=== PATIENT | male | born 1980 | race American Indian/Alaskan Native ===

== ENCOUNTER 2019-05-31 17:00 | Emergency (ER) | payer SELFPAY ==
--- NOTE | 2019-05-31 17:28 | Event Note ---
ED Screening Note ED Screening Note: PT HAD A PHYSICAL FOR JOB- BP ELEVATED AND THEY SENT HIM HERE NO CP NO SOB MOM DEC ESRD/HD DAD DEC ? CAUSE PMH NONE PSH NONE RX NONE NO CIG/ETOH/DRUGS NON OBESE This initial assessment/diagnostic orders/clinical plan/treatment(s) is/are subject to change based on patients health status, clinical progression and re- assessment by fellow clinical providers in the ED. Further treatment and workup at subsequent clinical providers discretion. Patient/guardian urged not to elope from the ED as their condition may be serious if not clinically assessed and managed. Initial orders include:
[2019-05-31] MEDS ORDERED: CATAPRES PO ONE (17:36)
--- NOTE | 2019-05-31 18:16 | Emergency Department Report ---
ED General Adult HPI - General Chief complaint: High BP Stated complaint: HBP Time Seen by Provider: 05/31/19 17:35 Source: patient Mode of arrival: Ambulatory Limitations: No Limitations - History of Present Illness Initial comments: 38-year-old female with no known past medical history presents to the hospital with complaints of elevated low-pressure during a job physical. 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 His BP was elevated he was sent to the ER for evaluation. Patient denies a known history of hypertension but has not seen a physician in quite some time. He denies headache, blurred vision, chest pain, shortness of breath, decreased urine output, focal weakness, or focal numbness. Initial BP upon arrival was 237/133. - Related Data Previous Rx's Medication Instructions Recorded Last Taken Type Aspirin 325 mg PO QDAY #30 tablet 05/31/19 Unknown Rx amLODIPine [Norvasc] 5 mg PO DAILY #30 tab 05/31/19 Unknown Rx cloNIDine [Catapres] 0.1 mg PO BID #60 tablet 05/31/19 Unknown Rx Allergies Allergy/AdvReac Type Severity Reaction Status Date / Time No Known Allergies Allergy Unverified 05/31/19 17:15 ED Review of Systems ROS: Stated complaint: HBP Other details as noted in HPI Comment: All other systems reviewed and negative ED Past Medical Hx - Past Medical History Previous Medical History?: No - Surgical History Past Surgical History?: No - Social History Smoking Status: Never Smoker - Medications Home Medications: Home Medications Medication Instructions Recorded Confirmed Last Taken Type Aspirin 325 mg PO QDAY #30 tablet 05/31/19 Unknown Rx amLODIPine [Norvasc] 5 mg PO DAILY #30 tab 05/31/19 Unknown Rx cloNIDine [Catapres] 0.1 mg PO BID #60 tablet 05/31/19 Unknown Rx ED Physical Exam - General Limitations: No Limitations - Other Other exam information: Gen.: No acute distress Head: Atraumatic Eyes: Normal appearance, pupils equal and reactive to light, extraocular movements intact ENT: Moist mucous membranes Neck: Normal appearance, no posterior midline tenderness, no meningismus Chest: Clear to auscultation bilaterally Cardiovascular: Regular rate and rhythm Abdomen: Normal appearance, soft, nontender, no rebound or guarding, normal bowel sounds Back: Normal appearance, nontender Extremity: Full range of motion, normal appearance, no calf tenderness or leg edema Neuro: Alert oriented 3, clear speech, no focal motor or sensory deficit Psychiatric: Appropriate Skin: No rash ED Course Vital Signs 05/31/19 05/31/19 05/31/19 17:18 17:26 17:31 Temperature 98.4 F Pulse Rate 112 H Respiratory 16 12 Rate Blood Pressure Blood Pressure 237/133 [Right] O2 Sat by Pulse 100 100 99 Oximetry 05/31/19 05/31/19 05/31/19 18:00 18:52 19:07 Temperature Pulse Rate 99 H 90 87 Respiratory 21 17 16 Rate Blood Pressure 216/122 Blood Pressure 202/121 162/93 [Right] O2 Sat by Pulse 99 97 98 Oximetry 05/31/19 05/31/19 05/31/19 19:59 20:00 21:17 Temperature Pulse Rate 77 80 77 Respiratory 16 16 17 Rate Blood Pressure Blood Pressure 183/108 177/106 166/97 [Right] O2 Sat by Pulse 97 98 97 Oximetry 05/31/19 05/31/19 22:18 22:49 Temperature Pulse Rate 72 72 Respiratory 16 Rate Blood Pressure 178/99 Blood Pressure 178/99 [Right] O2 Sat by Pulse 99 Oximetry - Reevaluation(s) Reevaluation #1: 05/31/19 18:16 Patient is asymptomatic. Received clonidine 0.2 mg while results pending. ED Medical Decision Making - Lab Data Result diagrams: 05/31/19 17:56 05/31/19 17:56 Lab Results 05/31/19 05/31/19 05/31/19 Range/Units 17:56 17:56 17:56 WBC 6.8 (4.5-11.0) K/mm3 RBC 4.96 (3.65-5.03) M/mm3 Hgb 13.6 (11.8-15.2) gm/dl Hct 39.8 (35.5-45.6) % MCV 80 L (84-94) fl MCH 28 (28-32) pg MCHC 34 (32-34) % RDW 14.0 (13.2-15.2) % Plt Count 187 (140-440) K/mm3 Lymph % (Auto) 41.0 H (13.4-35.0) % [place] % (Auto) 7.3 (0.0-7.3) % Eos % (Auto) 2.0 (0.0-4.3) % Baso % (Auto) 0.7 (0.0-1.8) % Lymph # 2.8 (1.2-5.4) K/mm3 [place] # 0.5 (0.0-0.8) K/mm3 Eos # 0.1 (0.0-0.4) K/mm3 Baso # 0.0 (0.0-0.1) K/mm3 Seg Neutrophils % 49.0 (40.0-70.0) % Seg Neutrophils # 3.3 (1.8-7.7) K/mm3 PT 13.0 (12.2-14.9) Sec. INR 1.01 (0.87-1.13) Sodium 138 (137-145) mmol/L Potassium 3.6 (3.6-5.0) mmol/L Chloride 101.8 (98-107) mmol/L Carbon Dioxide 25 (22-30) mmol/L Anion Gap 15 mmol/L BUN 24 H (9-20) mg/dL Creatinine 1.8 H (0.8-1.5) mg/dL Estimated GFR 52 ml/min BUN/Creatinine Ratio 13 % Glucose 167 H (75-100) mg/dL Calcium 8.7 (8.4-10.2) mg/dL Total Bilirubin 0.30 (0.1-1.2) mg/dL AST 31 (5-40) units/L ALT 20 (7-56) units/L Alkaline Phosphatase 107 (35-129) units/L Troponin T (0.00-0.029) ng/mL Total Protein 7.3 (6.3-8.2) g/dL Albumin 3.4 L (3.9-5) g/dL Albumin/Globulin Ratio 0.9 % Urine Color (Yellow) Urine Turbidity (Clear) Urine pH (5.0-7.0) Ur Specific [place] (1.003-1.030) Urine Protein (Negative) mg/dL Urine Glucose (UA) (Negative) mg/dL Urine Ketones (Negative) mg/dL Urine Blood (Negative) Urine Nitrite (Negative) Urine Bilirubin (Negative) Urine Urobilinogen (<2.0) mg/dL Ur Leukocyte Esterase (Negative) Urine WBC (Auto) (0.0-6.0) /HPF Urine RBC (Auto) (0.0-6.0) /HPF Hyaline Casts /LPF Urine Opiates Screen Urine Methadone Screen Ur Barbiturates Screen Ur Phencyclidine Scrn Ur Amphetamines Screen U Benzodiazepines Scrn Urine Cocaine Screen U Marijuana (THC) Screen Drugs of Abuse Note 05/31/19 05/31/19 05/31/19 Range/Units 17:56 18:11 18:11 WBC (4.5-11.0) K/mm3 RBC (3.65-5.03) M/mm3 Hgb (11.8-15.2) gm/dl Hct (35.5-45.6) % MCV (84-94) fl MCH (28-32) pg MCHC (32-34) % RDW (13.2-15.2) % Plt Count (140-440) K/mm3 Lymph % (Auto) (13.4-35.0) % [place] % (Auto) (0.0-7.3) % Eos % (Auto) (0.0-4.3) % Baso % (Auto) (0.0-1.8) % Lymph # (1.2-5.4) K/mm3 [place] # (0.0-0.8) K/mm3 Eos # (0.0-0.4) K/mm3 Baso # (0.0-0.1) K/mm3 Seg Neutrophils % (40.0-70.0) % Seg Neutrophils # (1.8-7.7) K/mm3 PT (12.2-14.9) Sec. INR (0.87-1.13) Sodium (137-145) mmol/L Potassium (3.6-5.0) mmol/L Chloride (98-107) mmol/L Carbon Dioxide (22-30) mmol/L Anion Gap mmol/L BUN (9-20) mg/dL Creatinine (0.8-1.5) mg/dL Estimated GFR ml/min BUN/Creatinine Ratio % Glucose (75-100) mg/dL Calcium (8.4-10.2) mg/dL Total Bilirubin (0.1-1.2) mg/dL AST (5-40) units/L ALT (7-56) units/L Alkaline Phosphatase (35-129) units/L Troponin T < 0.010 (0.00-0.029) ng/mL Total Protein (6.3-8.2) g/dL Albumin (3.9-5) g/dL Albumin/Globulin Ratio % Urine Color Straw (Yellow) Urine Turbidity Clear (Clear) Urine pH 7.0 (5.0-7.0) Ur Specific [place] 1.008 (1.003-1.030) Urine Protein 100 mg/dl (Negative) mg/dL Urine Glucose (UA) 50 (Negative) mg/dL Urine Ketones Neg (Negative) mg/dL Urine Blood Sm (Negative) Urine Nitrite Neg (Negative) Urine Bilirubin Neg (Negative) Urine Urobilinogen < 2.0 (<2.0) mg/dL Ur Leukocyte Esterase Neg (Negative) Urine WBC (Auto) < 1.0 (0.0-6.0) /HPF Urine RBC (Auto) 4.0 (0.0-6.0) /HPF Hyaline Casts 1 /LPF Urine Opiates Screen Presumptive negative Urine Methadone Screen Presumptive negative Ur Barbiturates Screen Presumptive negative Ur Phencyclidine Scrn Presumptive negative Ur Amphetamines Screen Presumptive negative U Benzodiazepines Scrn Presumptive negative Urine Cocaine Screen Presumptive negative U Marijuana (THC) Screen Presumptive negative Drugs of Abuse Note Disclamer - EKG Data -: EKG Interpreted by [place] EKG shows normal: sinus rhythm, ST-T waves (lvh, inf lat t wave inv) - EKG Data When compared to previous EKG there are: previous EKG unavailable - Medical Decision Making pt has asymptomatic hypertension suspected to be chronic given the lack of symptoms. Patient has some abnormal EKG findings but does not have any chest pain and has a negative troponin. I suspect EKG findings are secondary to hypertension. Patient has mild renal insufficiency without hyperkalemia or acidosis. BP improved with clonidine 0.2 mg Case discussed with nephrology and recommended clonidine 0.1 mg twice a day and Norvasc 5 mg daily will be prescribed and follow-up advice. Outpatient cardiac workup also advised since patient is asymptomatic. Pt has negative troponin. pt will need close outpt f/u with renal, cards, and pmd. [facility] cardiology f/u for low heart score given to gaming investigator to arrange for close f/u - Differential Diagnosis hypertensive emergency/urgency Critical Care Time: No Critical care attestation.: If time is entered above; I have spent that time in minutes in the direct care of this critically ill patient, excluding procedure time. ED Disposition Clinical Impression: Hypertension, Mild renal insufficiency, Asymptomatic hypertension Disposition: DC-01 TO HOME OR SELFCARE Is pt being admited?: No Does the pt Need Aspirin: No Condition: Stable Instructions: Hypertension (ED), Impaired Kidney Function (ED) Additional Instructions: Take the medication as prescribed. Follow-up with your doctor or with the doctor/clinic provided. Return if symptoms worsen as indicated by your discharge instructions. Follow-up with cardiology for further evaluation due to EKG findings which are likely the result of long-standing untreated high blood pressure. Follow-up with the kidney doctor for further monitoring of your kidney function and adjustment of your blood pressure medication Follow-up with the primary care doctor coordinate your care. Prescriptions: Aspirin 325 mg PO QDAY #30 tablet cloNIDine [Catapres] 0.1 mg PO BID #60 tablet amLODIPine [Norvasc] 5 mg PO DAILY #30 tab Referrals: TAYLER LEE MD [Staff Physician] - 3-5 Days (Dater Assembler) [facility], [Provider Group] - 2-3 Days (Fur Ironer) PANFILO NESBITT MD [Staff Physician] - 2-3 Days (Primary care doctor) [facility] [Provider Group] - 2-3 Days (Primary care clinic) Time of Disposition: 22:56
[2019-05-31 18:21] LABS: Basophils % (Auto) 0.7 % (0.0-1.8); Eosinophils # (Auto) 0.1 K/mm3 (0.0-0.4); Hematocrit 39.8 % (35.5-45.6); Hemoglobin 13.6 gm/dl (11.8-15.2); Lymphocytes # (Auto) 2.8 K/mm3 (1.2-5.4); Mean Corpuscular HGB Conc 34 % (32-34); Mean Corpuscular Volume 80 fl (84-94); Monocytes # (Auto) 0.5 K/mm3 (0.0-0.8); Monocytes % (Auto) 7.3 % (0.0-7.3); Platelet Count 187 K/mm3 (140-440); Red Blood Count 4.96 M/mm3 (3.65-5.03)
[2019-05-31 18:29] LABS: INR 1.01 (0.87-1.13)
[2019-05-31 18:48] LABS: Albumin 3.4 g/dL (3.9-5); Calcium 8.7 mg/dL (8.4-10.2)
[2019-05-31 19:05] LABS: Bilirubin,Urine NEG (Negative); Blood,Urine SM (Negative); Color,Urine Straw (Yellow); Hyaline Casts,Urine 1 /LPF; Urobilinogen,Urine < 2.0 mg/dL (<2.0); WBC,Urine < 1.0 /HPF (0.0-6.0)
[2019-05-31 19:09] LABS: Amphetamine Screen,Urine PRESUMPTIVE NEGATIVE; Benzodiazepines Screen,Urine PRESUMPTIVE NEGATIVE; Cannabinoid Screen,Urine PRESUMPTIVE NEGATIVE; Cocaine Screen,Urine PRESUMPTIVE NEGATIVE; Methadone Screen,Urine PRESUMPTIVE NEGATIVE; Opiate Screen,Urine PRESUMPTIVE NEGATIVE
[2019-05-31] MEDS ORDERED: NORVASC PO ONE (21:39)
[2019-05-31 23:32] VITALS: BP 177/102
== END 2019-05-31 23:33 | disposition home or self-care (01) ==
LOC: ED 17:00
DX: N28.9 Disorder of kidney and ureter, unspecified (principal); I10 Essential (primary) hypertension; Z79.899 Other long term (current) drug therapy
CPT/HCPCS: 36415; 80053; 80307; 81001; 84484; 85025; 85610; 93005; 93010

== ENCOUNTER 2019-06-09 11:58 | Emergency (ER) | payer SELFPAY ==
--- NOTE | 2019-06-09 12:13 | Emergency Department Report ---
Blank Doc - Documentation Documentation: 38 y/o male with asymptomatic HTN presnets with continued HTN despite taking medications. his initial assessment/diagnostic orders/clinical plan/treatment(s) is/are subject to change based on patient's health status, clinical progression and re- assessment by fellow clinical providers in the ED. Further treatment and workup at subsequent clinical providers discretion. Patient/guardians urged not to elope from the ED as their condition may be serious if not clinically assessed and managed. Initial orders include: NO test needed
--- NOTE | 2019-06-09 12:40 | Emergency Department Report ---
ED General Adult HPI - General Chief complaint: High BP Stated complaint: MEDICATION NOT WORKING Time Seen by Provider: 06/09/19 12:04 Source: patient Mode of arrival: Ambulatory Limitations: No Limitations - History of Present Illness Initial comments: She is a 38-year-old male that presents emergency room for management of his blood pressure. Patient is asymptomatic. Patient states she is taking Norvasc 5 mg once a day and clonidine once a day. Patient's blood pressure is currently 203/100. Patient denies chest pain. Patient shortness breath. Patient denies headache. Patient denies blurry vision. Patient denies syncope. Patient denies trauma. Patient's clonidine is written for twice a day but patient did not realize it was twice a day. Patient states she took an extra clonidine just prior to arrival. -: Sudden - Related Data Previous Rx's Medication Instructions Recorded Last Taken Type Aspirin 325 mg PO QDAY #30 tablet 05/31/19 Unknown Rx amLODIPine 10 mg PO DAILY #30 tab 06/09/19 Unknown Rx cloNIDine [Catapres] 0.1 mg PO TID #45 tablet 06/09/19 Unknown Rx Allergies Allergy/AdvReac Type Severity Reaction Status Date / Time No Known Allergies Allergy Verified 06/09/19 12:00 ED Review of Systems ROS: Stated complaint: MEDICATION NOT WORKING Other details as noted in HPI Constitutional: denies: chills, fever Eyes: denies: eye pain, eye discharge, vision change ENT: denies: ear pain, throat pain Respiratory: denies: cough, shortness of breath, wheezing Cardiovascular: denies: chest pain, palpitations Endocrine: no symptoms reported Gastrointestinal: denies: abdominal pain, nausea, diarrhea Genitourinary: denies: urgency, dysuria Musculoskeletal: denies: back pain, joint swelling, arthralgia Skin: denies: rash, lesions Neurological: denies: headache, weakness, paresthesias Psychiatric: denies: anxiety, depression Hematological/Lymphatic: denies: easy bleeding, easy bruising ED Past Medical Hx - Past Medical History Previous Medical History?: Yes Hx Hypertension: Yes - Surgical History Past Surgical History?: No - Social History Smoking Status: Never Smoker Substance Use Type: None - Medications Home Medications: Home Medications Medication Instructions Recorded Confirmed Last Taken Type Aspirin 325 mg PO QDAY #30 tablet 05/31/19 Unknown Rx amLODIPine 10 mg PO DAILY #30 tab 06/09/19 Unknown Rx cloNIDine [Catapres] 0.1 mg PO TID #45 tablet 06/09/19 Unknown Rx ED Physical Exam - General Limitations: No Limitations General appearance: alert, in no apparent distress - Head Head exam: Present: atraumatic, normocephalic - Eye Eye exam: Present: normal appearance - ENT ENT exam: Present: mucous membranes moist - Neck Neck exam: Present: normal inspection - Respiratory Respiratory exam: Present: normal lung sounds bilaterally. Absent: respiratory distress - Cardiovascular Cardiovascular Exam: Present: regular rate, normal rhythm. Absent: systolic murmur, diastolic murmur, rubs, gallop - GI/Abdominal GI/Abdominal exam: Present: soft, normal bowel sounds - Rectal Rectal exam: Present: deferred - Extremities Exam Extremities exam: Present: normal inspection - Back Exam Back exam: Present: normal inspection - Neurological Exam Neurological exam: Present: alert, oriented X3 - Psychiatric Psychiatric exam: Present: normal affect, normal mood - Skin Skin exam: Present: warm, dry, intact, normal color. Absent: rash ED Course Vital Signs 06/09/19 06/09/19 12:06 12:45 Temperature 97.9 F Pulse Rate 89 84 Respiratory 20 20 Rate Blood Pressure 203/100 Blood Pressure 192/91 [Left] O2 Sat by Pulse 100 100 Oximetry - Reevaluation(s) Reevaluation #1: Abrasion does not currently does not have a marginal medical condition except for his elevated blood pressure. Patient's blood pressure rechecked and his prescription will be increased. I reviewed the patient's labs from previous visit. 06/09/19 12:37 His current blood pressure is 194/100. Patient stable for discharge. Patient given discharge instructions. Patient voiced understanding of discharge instructions. Patient agrees with plan of care. 06/09/19 12:42 ED Medical Decision Making - Medical Decision Making pt is a 38-year-old male that presents emergency room with complaints of elevated blood pressure. Patient has been taking his clonidine once a day versus twice a day. I reviewed patient's last labs from his previous visit. Patient previously on Norvasc 5 mg and 0.1 mg daily and clonidine. Patient's clonidine increased to 3 times a day and Norvasc increased 10 mg daily. Patient came male with a severely elevated blood pressure and blood pressure decreased with his 0.1 mg clonidine a took just prior to arrival to 190/90 and patient stable for discharge. Patient does not require any further lab for emergent evaluation. Patient's meds adjusted and patient given new prescriptions. - Differential Diagnosis elevated blood pressure. Hypertensive urgency. Critical care attestation.: If time is entered above; I have spent that time in minutes in the direct care of this critically ill patient, excluding procedure time. ED Disposition Clinical Impression: Mild renal insufficiency, Asymptomatic hypertension, Hypertensive urgency Hypertension Qualifiers: Hypertension type: essential hypertension Qualified Code(s): I10 - Essential (primary) hypertension Disposition: TO HOME OR SELFCARE Is pt being admited?: No Does the pt Need Aspirin: No Condition: Stable Instructions: Heart Healthy Diet (ED), How to Take a Blood Pressure (ED), DASH Eating Plan (ED), Low Sodium Diet (ED), Hypertension (ED) Additional Instructions: Patient to follow-up with primary care in 2-3 days. Patient to take meds as directed. Patient to follow prescriptions. Patient to increase water. Patient to eat heart healthy and a low salt diet. Patient to monitor blood pressure at home. Patient take pressure log to primary care visits. To return to ER if condition worsens. Prescriptions: amLODIPine 10 mg PO DAILY #30 tab cloNIDine [Catapres] 0.1 mg PO TID #45 tablet Time of Disposition: 12:39
[2019-06-09 12:51] VITALS: BP 192/91
== END 2019-06-09 12:50 | disposition home or self-care (01) ==
LOC: ED 11:58
DX: I16.0 Hypertensive urgency (principal); I10 Essential (primary) hypertension; N28.9 Disorder of kidney and ureter, unspecified; Z79.82 Long term (current) use of aspirin; Z79.899 Other long term (current) drug therapy
CPT/HCPCS: 99282

== ENCOUNTER 2019-07-06 10:51 | Emergency (ER) | payer SELFPAY ==
[2019-07-06 11:01] VITALS: BP 186/103
--- NOTE | 2019-07-06 12:18 | Emergency Department Report ---
ED General Adult HPI - General Chief complaint: Medical Clearance Stated complaint: MEDS REFILL Time Seen by Provider: 07/06/19 12:06 Source: patient Mode of arrival: Ambulatory Limitations: No Limitations - History of Present Illness Initial comments: 38-year-old -[place] male since emergency department seeking a medication refill for hypertension. He went to his doctor's office earlier was unable to verify his insurance while he was there. He states that the process of taking too long so they referred him to the emergency department so that he may get it refilled. Patient is unsure if his insurance is going to or not. He reports no chest pain, palpitations no nausea, vomiting no fever, chills, sweats. Severity scale (0 -10): 0 Improves with: none Worsens with: none Treatments Prior to Arrival: none - Related Data Previous Rx's Medication Instructions Recorded Last Taken Type Aspirin 325 mg PO QDAY #30 tablet 05/31/19 Unknown Rx amLODIPine 10 mg PO DAILY #30 tab 06/09/19 Unknown Rx cloNIDine [Catapres] 0.1 mg PO TID #45 tablet 06/09/19 Unknown Rx amLODIPine 10 mg PO DAILY #10 tab 07/06/19 Unknown Rx cloNIDine [Catapres] 0.1 mg PO TID #30 tablet 07/06/19 Unknown Rx Allergies Allergy/AdvReac Type Severity Reaction Status Date / Time No Known Allergies Allergy Verified 06/09/19 12:00 ED Review of Systems ROS: Stated complaint: MEDS REFILL Other details as noted in HPI Comment: All other systems reviewed and negative ED Past Medical Hx - Past Medical History Previous Medical History?: Yes Hx Hypertension: Yes - Surgical History Past Surgical History?: No - Social History Smoking Status: Never Smoker Substance Use Type: None - Medications Home Medications: Home Medications Medication Instructions Recorded Confirmed Last Taken Type Aspirin 325 mg PO QDAY #30 tablet 05/31/19 Unknown Rx amLODIPine 10 mg PO DAILY #30 tab 06/09/19 Unknown Rx cloNIDine [Catapres] 0.1 mg PO TID #45 tablet 06/09/19 Unknown Rx amLODIPine 10 mg PO DAILY #10 tab 07/06/19 Unknown Rx cloNIDine [Catapres] 0.1 mg PO TID #30 tablet 07/06/19 Unknown Rx ED Physical Exam - General Limitations: No Limitations General appearance: alert, in no apparent distress - Head Head exam: Present: atraumatic, normocephalic - Eye Eye exam: Present: normal appearance, PERRL, EOMI Pupils: Present: normal accommodation - ENT ENT exam: Present: normal exam, normal orophraynx, mucous membranes moist, TM's normal bilaterally - Neck Neck exam: Present: normal inspection - Respiratory Respiratory exam: Present: normal lung sounds bilaterally. Absent: respiratory distress - Cardiovascular Cardiovascular Exam: Present: regular rate, normal rhythm. Absent: systolic murmur, diastolic murmur, rubs, gallop - GI/Abdominal GI/Abdominal exam: Present: soft, normal bowel sounds - Rectal Rectal exam: Present: deferred - Extremities Exam Extremities exam: Present: normal inspection - Back Exam Back exam: Present: normal inspection. Absent: CVA tenderness (R), CVA tenderness (L) - Neurological Exam Neurological exam: Present: alert, oriented X3, CN II-XII intact, normal gait, reflexes normal, other (normal finger to nose. Normal [id number]. Romberg test is negative. A coordinated and smooth. No nystagmus. No signs of ataxia). Absent: motor sensory deficit - Psychiatric Psychiatric exam: Present: normal affect, normal mood. Absent: anxious, manic, suicidal ideation - Skin Skin exam: Present: warm, dry, intact, normal color. Absent: rash, cyanosis, erythema, petechiae, abrasion ED Course Vital Signs 07/06/19 11:00 Temperature 98.3 F Pulse Rate 90 Respiratory 18 Rate Blood Pressure 186/103 O2 Sat by Pulse 100 Oximetry ED Medical Decision Making - Medical Decision Making 38-year-old [place] male with asymptomatic hypertension seeking a medication refill. At this present time treatment not wanted per the ACEP guidelines. The patient is neurologically intact no chest pain no shortness of breath no palpitations no headache no blurred vision no nausea, no vomiting. Head is present time there is no medical emergency or urgency hypertension is asymptomatic we will refer patient to registration for screening satisfaction Critical care attestation.: If time is entered above; I have spent that time in minutes in the direct care of this critically ill patient, excluding procedure time. ED Disposition Clinical Impression: Hypertension Disposition: MED SCREENING EXAM-LEFT Is pt being admited?: No Does the pt Need Aspirin: No Condition: Stable Instructions: Hypertension (ED) Prescriptions: amLODIPine 10 mg PO DAILY #10 tab cloNIDine [Catapres] 0.1 mg PO TID #30 tablet Referrals: [facility] [Provider Group] - 3-5 Days
== END 2019-07-06 12:52 | disposition left against medical advice (07) ==
LOC: ED 10:51
DX: I10 Essential (primary) hypertension (principal); Z76.0 Encounter for issue of repeat prescription
CPT/HCPCS: 99281

== ENCOUNTER 2019-07-10 08:19 | Emergency (ER) | payer SELFPAY ==
--- NOTE | 2019-07-10 09:23 | Emergency Department Report ---
ED General Adult HPI - General Chief complaint: High BP Stated complaint: MEDICATION REFILL Time Seen by Provider: 07/10/19 08:56 Source: patient Mode of arrival: Ambulatory Limitations: No Limitations - History of Present Illness Initial comments: This is a 38-year-old male nontoxic, well nourished in appearance, no acute signs of distress presents to the ED for medication refill of his blood pressure. Patient stated he was unable to follow-up with his primary care doctor. Patient stated that he takes Catapres and amlodipine daily but has not been taking it for the past 3 days. Patient denies any symptoms. Patient denies any chest pain, shortness of breath, fever, chills, nausea, vomiting, headache, stiff neck, numbness, tingling, back pain. Patient denies any allergies. MD Complaint: hypertensive urgency -: week(s) Severity scale (0 -10): 0 Improves with: none Worsens with: none Associated Symptoms: denies other symptoms. denies: confusion, chest pain, cough, diaphoresis, fever/chills, headaches, loss of appetite, malaise, nausea/vomiting, rash, seizure, shortness of breath, syncope, weakness Treatments Prior to Arrival: none - Related Data Previous Rx's Medication Instructions Recorded Last Taken Type Aspirin 325 mg PO QDAY #30 tablet 05/31/19 Unknown Rx amLODIPine 10 mg PO DAILY #30 tab 06/09/19 Unknown Rx cloNIDine [Catapres] 0.1 mg PO TID #45 tablet 06/09/19 Unknown Rx amLODIPine 10 mg PO DAILY #10 tab 07/06/19 Unknown Rx cloNIDine [Catapres] 0.1 mg PO TID #30 tablet 07/06/19 Unknown Rx amLODIPine 10 mg PO DAILY #30 tab 07/10/19 Unknown Rx cloNIDine [Catapres] 0.1 mg PO TID #90 tablet 07/10/19 Unknown Rx Allergies Allergy/AdvReac Type Severity Reaction Status Date / Time No Known Allergies Allergy Verified 06/09/19 12:00 ED Review of Systems ROS: Stated complaint: MEDICATION REFILL Other details as noted in HPI Constitutional: denies: chills, fever Eyes: denies: eye pain, eye discharge, vision change ENT: denies: ear pain, throat pain Respiratory: denies: cough, shortness of breath, wheezing Cardiovascular: denies: chest pain, palpitations Endocrine: no symptoms reported Gastrointestinal: denies: abdominal pain, nausea, diarrhea Genitourinary: denies: urgency, dysuria Musculoskeletal: denies: back pain, joint swelling, arthralgia Skin: denies: rash, lesions Neurological: denies: headache, weakness, paresthesias Psychiatric: denies: anxiety, depression Hematological/Lymphatic: denies: easy bleeding, easy bruising ED Past Medical Hx - Past Medical History Previous Medical History?: Yes Hx Hypertension: Yes - Surgical History Past Surgical History?: No - Social History Smoking Status: Never Smoker Substance Use Type: Prescribed - Medications Home Medications: Home Medications Medication Instructions Recorded Confirmed Last Taken Type Aspirin 325 mg PO QDAY #30 tablet 05/31/19 Unknown Rx amLODIPine 10 mg PO DAILY #30 tab 06/09/19 Unknown Rx cloNIDine [Catapres] 0.1 mg PO TID #45 tablet 06/09/19 Unknown Rx amLODIPine 10 mg PO DAILY #10 tab 07/06/19 07/10/19 Unknown Rx cloNIDine [Catapres] 0.1 mg PO TID #30 tablet 07/06/19 07/10/19 Unknown Rx amLODIPine 10 mg PO DAILY #30 tab 07/10/19 Unknown Rx cloNIDine [Catapres] 0.1 mg PO TID #90 tablet 07/10/19 Unknown Rx ED Physical Exam - General Limitations: No Limitations General appearance: alert, in no apparent distress - Head Head exam: Present: atraumatic, normocephalic - Eye Eye exam: Present: normal appearance, PERRL, EOMI - Neck Neck exam: Present: normal inspection, full ROM. Absent: tenderness, meningismus, lymphadenopathy - Respiratory Respiratory exam: Present: normal lung sounds bilaterally. Absent: respiratory distress, wheezes, rales, rhonchi, chest wall tenderness, accessory muscle use, decreased breath sounds, prolonged expiratory - Cardiovascular Cardiovascular Exam: Present: regular rate, normal rhythm - Extremities Exam Extremities exam: Present: normal inspection, full ROM - Back Exam Back exam: Present: normal inspection, full ROM. Absent: tenderness, CVA tenderness (R), CVA tenderness (L), muscle spasm, paraspinal tenderness, vertebral tenderness, rash noted - Neurological Exam Neurological exam: Present: alert, oriented X3, normal gait - Psychiatric Psychiatric exam: Present: normal affect, normal mood ED Course Vital Signs 07/10/19 07/10/19 07/10/19 08:22 09:29 09:30 Temperature 98.2 F Pulse Rate 94 H Respiratory 18 Rate Blood Pressure 244/134 Blood Pressure [Right] O2 Sat by Pulse 100 100 100 Oximetry 07/10/19 07/10/19 07/10/19 09:31 09:32 09:44 Temperature Pulse Rate 111 H 107 H Respiratory 15 15 Rate Blood Pressure 226/119 Blood Pressure 226/119 [Right] O2 Sat by Pulse 99 99 Oximetry 07/10/19 07/10/19 07/10/19 09:45 10:00 10:15 Temperature Pulse Rate 74 68 68 Respiratory 13 9 L 11 L Rate Blood Pressure 207/117 204/113 207/117 Blood Pressure [Right] O2 Sat by Pulse 99 99 98 Oximetry 07/10/19 07/10/19 07/10/19 10:30 10:45 11:01 Temperature Pulse Rate 73 65 61 Respiratory 15 16 15 Rate Blood Pressure 210/108 204/113 165/97 Blood Pressure [Right] O2 Sat by Pulse 98 99 97 Oximetry - Reevaluation(s) Reevaluation #1: 07/10/19 09:21 Patient is speaking in full sentences with no signs of distress noted. - Consultations Consultation #1: 07/10/19 09:21 Patient has been consulted with Clarisa Oscar about patient history, physical exam, and for diagnostic testing to be performed. ED Medical Decision Making - Lab Data Result diagrams: 07/10/19 09:22 07/10/19 09:22 - Medical Decision Making This is a 38-year-old male that presents with hypertension. Patient is stable and was examined by me. Patient is asymptomatic. Patient was consultedwith Dr. Cooper. EKG obtained. Labs are unremarkable. Patient does have a kidney insufficiency but GFR is better than previous visits. Patient was instructed to follow-up with a manager reimbursement due to does not appear. Patient will be discharged with medication that he missed and takes. Patient was instructed to Follow-up with a primary care doctor in 3-5 days or if symptoms worsen and continue return to emergency room as soon as possible. At time of discharge, the patient does not seem toxic or ill in appearance. No acute signs of distress noted. Patient agrees to discharge treatment plan of care. No further questions noted by the patient. - Differential Diagnosis end-stage kidney failure, rhabdo, drug-induced, cardiac disease Critical care attestation.: If time is entered above; I have spent that time in minutes in the direct care of this critically ill patient, excluding procedure time. ED Disposition Clinical Impression: Hypertension Qualifiers: Hypertension type: unspecified Qualified Code(s): I10 - Essential (primary) hypertension Disposition: TO HOME OR SELFCARE Is pt being admited?: No Does the pt Need Aspirin: No Condition: Stable Instructions: Hypertension (ED) Additional Instructions: Follow-up with a primary care and a manager reimbursement doctor in 3-5 days or if symptoms worsen and continue return to emergency room as soon as possible. Prescriptions: amLODIPine 10 mg PO DAILY #30 tab cloNIDine [Catapres] 0.1 mg PO TID #90 tablet Referrals: PRIMARY MD DWAINE [Primary Care Provider] - 3-5 Days LORA LAND MD [Staff Physician] - 3-5 Days SATINDER SARABIA MD [Staff Physician] - 3-5 Days [facility] [Outside] - 3-5 Days
--- NOTE | 2019-07-10 09:34 | XRay Report ---
CHEST 1 VIEW INDICATION / CLINICAL INFORMATION: Hypertension. COMPARISON: None available. FINDINGS: HEART / MEDIASTINUM: Heart size is normal. Upper mediastinal contours unremarkable. LUNGS / PLEURA: No significant pulmonary or pleural abnormality. No pneumothorax. IMPRESSION: 1. No acute finding. Signer Name: Dwight Muñiz MD Signed: 07/10/2019 9:30 AM Workstation Name: [id number]
[2019-07-10] MEDS ORDERED: cloNIDine 0.2 MG TAB PO ONE (09:40)
[2019-07-10 09:56] LABS: Basophils # (Auto) 0.1 K/mm3 (0.0-0.1); Basophils % (Auto) 0.8 % (0.0-1.8); Eosinophils # (Auto) 0.1 K/mm3 (0.0-0.4); Eosinophils % (Auto) 1.5 % (0.0-4.3); Hematocrit 40.2 % (35.5-45.6); Hemoglobin 13.9 gm/dl (11.8-15.2); Lymphocytes # (Auto) 2.5 K/mm3 (1.2-5.4); Lymphocytes % (Auto) 38.4 % (13.4-35.0); Mean Corpuscular HGB Conc 35 % (32-34); Mean Corpuscular Volume 81 fl (84-94); Monocytes # (Auto) 0.4 K/mm3 (0.0-0.8); Monocytes % (Auto) 6.3 % (0.0-7.3); Platelet Count 185 K/mm3 (140-440); Red Blood Count 4.97 M/mm3 (3.65-5.03); Red Cell Distribution Width 13.4 % (13.2-15.2)
[2019-07-10 10:07] LABS: INR 0.92 (0.87-1.13)
[2019-07-10 10:09] LABS: Partial Thromboplastin Time 30.2 Sec. (24.2-36.6)
[2019-07-10 10:13] LABS: Bacteria,Urine 1+ /HPF (Negative); Bilirubin,Urine NEG (Negative); Blood,Urine SM (Negative); Color,Urine Yellow (Yellow); Mucus,Urine FEW /HPF; Urobilinogen,Urine < 2.0 mg/dL (<2.0)
[2019-07-10 10:20] LABS: Alanine Aminotransferase 16 units/L (7-56); Albumin 3.8 g/dL (3.9-5); BUN/Creatinine Ratio 13; Blood Urea Nitrogen 22 mg/dL (9-20); Calcium 9.2 mg/dL (8.4-10.2); Hemolysis Index 6
[2019-07-10 10:22] LABS: Amphetamine Screen,Urine PRESUMPTIVE NEGATIVE; Benzodiazepines Screen,Urine PRESUMPTIVE NEGATIVE; Cannabinoid Screen,Urine PRESUMPTIVE NEGATIVE; Cocaine Screen,Urine PRESUMPTIVE NEGATIVE; Methadone Screen,Urine PRESUMPTIVE NEGATIVE; Opiate Screen,Urine PRESUMPTIVE NEGATIVE
[2019-07-10 10:48] LABS: Bilirubin,Direct < 0.2 mg/dL (0-0.2)
[2019-07-10 11:57] VITALS: BP 152/95
== END 2019-07-10 11:56 | disposition home or self-care (01) ==
LOC: ED 08:19
DX: I10 Essential (primary) hypertension (principal); Z76.0 Encounter for issue of repeat prescription; Z79.899 Other long term (current) drug therapy
CPT/HCPCS: 36415; 71045; 80048; 80076; 80307; 81001; 82550; 83880; 84484; 85025; 85610; 85730; 93005; 93010

== ENCOUNTER 2019-08-09 11:03 | Emergency (ER) | payer OTHER | END 2019-08-09 12:04 | disposition left against medical advice (07) | LOC: ED 11:03 ==

== ENCOUNTER 2019-08-11 01:25 | Emergency (ER) | payer OTHER ==
[2019-08-11 04:09] VITALS: BP 176/100
--- NOTE | 2019-08-11 04:56 | Emergency Department Report ---
ED General Adult HPI - General Chief complaint: Medical Clearance Stated complaint: MED REFILL/ELEVATED BLOOD PRESSURE Time Seen by Provider: 08/11/19 03:56 Source: patient Mode of arrival: Ambulatory Limitations: No Limitations - History of Present Illness Initial comments: This is a 39-year-old -[place] male that presents to the emergency room with elevated blood pressure and requesting refills of blood pressure medication. Past medical history of hypertension. Patient states he ran out of medication on yesterday. He denies chest pain, shortness of breath, palpitations, visual changes, headache, or weakness. Onset/Timin -: days(s) Severity scale (0 -10): 0 Improves with: none Worsens with: none Associated Symptoms: denies other symptoms Treatments Prior to Arrival: none - Related Data Previous Rx's Medication Instructions Recorded Last Taken Type Aspirin 325 mg PO QDAY #30 tablet 05/31/19 08/10/19 Rx amLODIPine 10 mg PO DAILY #30 tab 08/11/19 Unknown Rx cloNIDine [Catapres] 0.1 mg PO TID #45 tablet 08/11/19 Unknown Rx Allergies Allergy/AdvReac Type Severity Reaction Status Date / Time No Known Allergies Allergy Verified 08/09/19 11:17 ED Review of Systems ROS: Stated complaint: MED REFILL/ELEVATED BLOOD PRESSURE Other details as noted in HPI Constitutional: denies: chills, fever Respiratory: denies: cough, shortness of breath, wheezing Cardiovascular: denies: chest pain, palpitations Endocrine: no symptoms reported Gastrointestinal: denies: abdominal pain, nausea, diarrhea Musculoskeletal: denies: back pain, joint swelling, arthralgia Skin: denies: rash, lesions Neurological: denies: headache, weakness, paresthesias Psychiatric: denies: anxiety, depression ED Past Medical Hx - Past Medical History Previous Medical History?: Yes Hx Hypertension: Yes - Surgical History Past Surgical History?: No - Social History Smoking Status: Never Smoker Substance Use Type: None - Medications Home Medications: Home Medications Medication Instructions Recorded Confirmed Last Taken Type Aspirin 325 mg PO QDAY #30 tablet 05/31/19 08/11/19 08/10/19 Rx amLODIPine 10 mg PO DAILY #30 tab 08/11/19 Unknown Rx cloNIDine [Catapres] 0.1 mg PO TID #45 tablet 08/11/19 Unknown Rx ED Physical Exam - General Limitations: No Limitations General appearance: alert, in no apparent distress - Respiratory Respiratory exam: Present: normal lung sounds bilaterally. Absent: respiratory distress - Cardiovascular Cardiovascular Exam: Present: regular rate, normal rhythm. Absent: systolic murmur, diastolic murmur, rubs, gallop - GI/Abdominal GI/Abdominal exam: Present: soft, normal bowel sounds. Absent: distended, tenderness, guarding, rebound, rigid - Neurological Exam Neurological exam: Present: alert, oriented X3, normal gait - Psychiatric Psychiatric exam: Present: normal affect, normal mood - Skin Skin exam: Present: warm, dry, intact, normal color. Absent: rash ED Course Vital Signs 08/11/19 08/11/19 01:31 04:08 Temperature 97.9 F Pulse Rate 133 H 111 H Respiratory 18 18 Rate Blood Pressure 204/123 Blood Pressure 176/100 [Left] O2 Sat by Pulse 100 100 Oximetry ED Medical Decision Making - Medical Decision Making Patient was examined by me. Patient is in no acute distress. Blood pressure elevated on arrival. Patient is asymptomatic. He denies chest pain, palpitations, visual changes, or headache. Asymptomatic hypertension. Patient ran out of medication for 1 day and requesting refills. Vitals improved from arrival. Start amlodipine and clonidine. Plan discussed with patient to discharge home and treat outpatient. He agrees with ER plan. Patient discharged home in stable condition. Referral to primary care providers for continued care. Critical care attestation.: If time is entered above; I have spent that time in minutes in the direct care of this critically ill patient, excluding procedure time. ED Disposition Clinical Impression: Medication refill, Asymptomatic hypertension Disposition: DC- TO HOME OR SELFCARE Is pt being admited?: No Condition: Stable Instructions: Hypertension (ED) Additional Instructions: Encourage stop smoking to reduce cardiovascular risk. Moderate caffeine consumption is acceptable. Begin and maintain aerobic exercise, with a goal of at least 30 minutes of moderate intensity, dynamic aerobic exercise (walking, jogging, cycling, or swimming) 5 days per week to total 150 minutes as tolerated or recommended by a physician. Take medication daily as prescribed. Follow up with Primary Care Provider in 1 week. Prescriptions: amLODIPine 10 mg PO DAILY #30 tab cloNIDine [Catapres] 0.1 mg PO TID #45 tablet Referrals: LOUISE SUBRAMANIAN MD [Staff Physician] - 3-5 Days DB CLOUD MD [Staff Physician] - 3-5 Days [facility] [Outside] - 3-5 Days [facility] [Outside] - 3-5 Days Forms: Work/School Release Form(ED) Time of Disposition: 04:56
== END 2019-08-11 05:13 | disposition home or self-care (01) ==
LOC: ED 01:25
DX: I10 Essential (primary) hypertension (principal); Z76.0 Encounter for issue of repeat prescription

== ENCOUNTER 2021-07-26 19:19 | Emergency (ER) | payer OTHER ==
[2021-07-26] MEDS ORDERED: cloNIDine 0.2 MG TAB PO STA (22:58)
--- NOTE | 2021-07-26 23:14 | Emergency Department Report ---
ED General Adult HPI - General Chief complaint: High BP Stated complaint: HIGH BP Time Seen by Provider: 07/26/21 21:21 Source: patient Mode of arrival: Ambulatory Limitations: No Limitations - History of Present Illness Initial comments: 40-year-old male with a known history of hypertension who [place] medication and attempted to get refills from his primary care provider who states he was unable to do so until next week. Upon arrival to his doctor his blood pressure was up with elevated 200/100 and something he received clonidine which brought his blood pressure down with advised come to emergency department for medication refills and follow-ups. He did not to follow-up with his primary care doctor in about 10 days Radiation: non-radiation Consistency: constant Improves with: none Worsens with: none Associated Symptoms: denies: chest pain, diaphoresis, loss of appetite, malaise, nausea/vomiting, syncope, weakness - Related Data Previous Rx's Medication Instructions Recorded Last Taken Type Aspirin 325 mg PO QDAY #30 tablet 05/31/19 08/10/19 Rx cloNIDine [Catapres] 0.1 mg PO TID #45 tablet 08/11/19 Unknown Rx amLODIPine 10 mg PO DAILY #30 tab 07/26/21 Unknown Rx cloNIDine [Catapres] 0.2 mg PO BID #60 tablet 07/26/21 Unknown Rx Allergies Allergy/AdvReac Type Severity Reaction Status Date / Time No Known Allergies Allergy Verified 08/09/19 11:17 ED Review of Systems ROS: Stated complaint: HIGH BP Other details as noted in HPI Comment: All other systems reviewed and negative ED Past Medical Hx - Past Medical History Previous Medical History?: Yes Hx Hypertension: Yes - Surgical History Past Surgical History?: No - Social History Smoking Status: Never Smoker Substance Use Type: None - Medications Home Medications: Home Medications Medication Instructions Recorded Confirmed Last Taken Type Aspirin 325 mg PO QDAY #30 tablet 05/31/19 08/11/19 08/10/19 Rx cloNIDine [Catapres] 0.1 mg PO TID #45 tablet 08/11/19 Unknown Rx amLODIPine 10 mg PO DAILY #30 tab 07/26/21 Unknown Rx cloNIDine [Catapres] 0.2 mg PO BID #60 tablet 07/26/21 Unknown Rx ED Physical Exam - General Limitations: No Limitations General appearance: alert, in no apparent distress - Head Head exam: Present: atraumatic, normocephalic - Eye Eye exam: Present: normal appearance, PERRL, EOMI Pupils: Present: normal accommodation - ENT ENT exam: Present: mucous membranes moist - Neck Neck exam: Present: normal inspection - Respiratory Respiratory exam: Present: normal lung sounds bilaterally. Absent: respiratory distress - Cardiovascular Cardiovascular Exam: Present: regular rate, normal rhythm. Absent: systolic murmur, diastolic murmur, rubs, gallop - GI/Abdominal GI/Abdominal exam: Present: soft, normal bowel sounds. Absent: distended, tenderness, guarding - Rectal Rectal exam: Present: deferred - Extremities Exam Extremities exam: Present: normal inspection, full ROM, normal capillary refill - Back Exam Back exam: Present: normal inspection. Absent: CVA tenderness (R), CVA tenderness (L) - Neurological Exam Neurological exam: Present: alert, oriented X3, CN II-XII intact - Psychiatric Psychiatric exam: Present: normal affect, normal mood - Skin Skin exam: Present: warm, dry, intact, normal color. Absent: rash ED Course Vital Signs 07/26/21 19:33 Temperature 98.1 F Pulse Rate 117 H Respiratory 18 Rate Blood Pressure 227/120 O2 Sat by Pulse 100 Oximetry Critical care attestation.: If time is entered above; I have spent that time in minutes in the direct care of this critically ill patient, excluding procedure time. ED Disposition Disposition: 01 HOME / SELF CARE / HOMELESS Condition: Stable Instructions: Hypertension (ED), Hypertension, Adult, Managing Your Hypertension, Preventing Hypertension Prescriptions: amLODIPine 10 mg PO DAILY #30 tab cloNIDine [Catapres] 0.2 mg PO BID #60 tablet Referrals: MADI MURPHY MD [Primary Care Provider] - 3-5 Days
[2021-07-27 01:14] VITALS: BP 205/113
== END 2021-07-27 01:00 | disposition home or self-care (01) ==
LOC: ED 19:19
DX: I10 Essential (primary) hypertension (principal); Z72.89 Other problems related to lifestyle; Z98.890 Other specified postprocedural states; Z79.899 Other long term (current) drug therapy
CPT/HCPCS: 99282

== ENCOUNTER 2022-04-13 09:32 | Emergency (ER) | payer OTHER ==
[2022-04-13 09:45] VITALS: BP 186/90
--- NOTE | 2022-04-13 10:24 | Emergency Department Report ---
ED Recheck HPI - General Chief Complaint: Recheck/Abnormal Lab/Rx Stated Complaint: BLOOD PRESSURE MEDS REFILL Time Seen by Provider: 04/13/22 09:49 Source: patient Mode of arrival: Ambulatory Limitations: No Limitations - History of Present Illness Initial Comments: This is a 41-year-old male nontoxic, well nourished in appearance, no acute signs of distress presents to the ED for blood pressure medication refill. Patient stated is taking Norvasc 10 mg daily as well as clonidine 0.2 mg twice a day. Patient stated last dose was several days ago. Otherwise denies any symptoms or complaints. Denies any chest pain, shortness of breath, fever, chills, nausea, vomiting, headache or stiff neck. Denies any allergies. MD Complaint: medication refill request -: days(s) Returns Today for: request for prescription Symptoms Since Prior Visit: no new symptoms Associated Symptoms: none. denies: fever, chills, chest pain, shortness of breath, rash, malaise, nasuea, abdominal pain - Related Data Previous Rx's Medication Instructions Recorded Last Taken Type Aspirin 325 mg PO QDAY #30 tablet 05/31/19 08/10/19 Rx cloNIDine [Catapres] 0.1 mg PO TID #45 tablet 08/11/19 Unknown Rx amLODIPine 10 mg PO DAILY #30 tab 04/13/22 Unknown Rx cloNIDine [Catapres] 0.2 mg PO BID #60 tablet 04/13/22 Unknown Rx Allergies Allergy/AdvReac Type Severity Reaction Status Date / Time No Known Allergies Allergy Verified 08/09/19 11:17 ED Review of Systems ROS: Stated complaint: BLOOD PRESSURE MEDS REFILL Other details as noted in HPI Comment: All other systems reviewed and negative Constitutional: denies: chills, fever Eyes: denies: eye pain, eye discharge, vision change ENT: denies: ear pain, throat pain Respiratory: denies: cough, shortness of breath, wheezing Cardiovascular: denies: chest pain, palpitations Endocrine: no symptoms reported Gastrointestinal: denies: abdominal pain, nausea, diarrhea Genitourinary: denies: urgency, dysuria Musculoskeletal: denies: back pain, joint swelling, arthralgia Skin: denies: rash, lesions Neurological: denies: headache, weakness, paresthesias Psychiatric: denies: anxiety, depression Hematological/Lymphatic: denies: easy bleeding, easy bruising ED Past Medical Hx - Past Medical History Hx Hypertension: Yes - Surgical History Past Surgical History?: No - Social History Smoking Status: Never Smoker Substance Use Type: None - Medications Home Medications: Home Medications Medication Instructions Recorded Confirmed Last Taken Type Aspirin 325 mg PO QDAY #30 tablet 05/31/19 08/11/19 08/10/19 Rx cloNIDine [Catapres] 0.1 mg PO TID #45 tablet 08/11/19 Unknown Rx amLODIPine 10 mg PO DAILY #30 tab 04/13/22 Unknown Rx cloNIDine [Catapres] 0.2 mg PO BID #60 tablet 04/13/22 Unknown Rx ED Physical Exam - General Limitations: No Limitations General appearance: alert, in no apparent distress - Head Head exam: Present: atraumatic, normocephalic - Eye Eye exam: Present: normal appearance - Neck Neck exam: Present: normal inspection, full ROM. Absent: lymphadenopathy - Respiratory Respiratory exam: Present: normal lung sounds bilaterally. Absent: respiratory distress, wheezes, rales, rhonchi, stridor, chest wall tenderness, accessory muscle use, decreased breath sounds, prolonged expiratory - Cardiovascular Cardiovascular Exam: Present: regular rate, normal rhythm, normal heart sounds. Absent: irregular rhythm, systolic murmur, diastolic murmur, rubs, gallop - Extremities Exam Extremities exam: Present: full ROM - Back Exam Back exam: Present: full ROM - Neurological Exam Neurological exam: Present: alert, oriented X3, normal gait - Psychiatric Psychiatric exam: Present: normal affect, normal mood - Skin Skin exam: Present: warm, dry, intact, normal color. Absent: rash ED Course Vital Signs 04/13/22 09:38 Temperature 98.3 F Pulse Rate 100 H Respiratory 16 Rate Blood Pressure 186/90 [Left] O2 Sat by Pulse 100 Oximetry - Reevaluation(s) Reevaluation #1: 04/13/22 10:25 Patient is speaking in full sentences with no signs of distress noted. ED Recheck MDM - Medical Decision Making I will refill patient's medication. Patient is stable and was examined by me. According to ACEP: (1) in ED patients with asymptomatic markedly elevated blood pressure, routine screening for acute target organ injury (eg, serum creatinine, urinalysis, ECG) is not required. (1) In patients with asymptomatic markedly elevated blood pressure, routine ED medical intervention is not required. Patient was instructed to follow-up with a primary care doctor in 3-5 days or if symptoms worsen and continue return to emergency room as soon as possible. At time of discharge, the patient does not seem toxic or ill in appearance. No acute signs of distress noted. Patient agrees to discharge treatment plan of care. No further questions noted by the patient. Critical care attestation.: If time is entered above; I have spent that time in minutes in the direct care of this critically ill patient, excluding procedure time. ED Disposition Clinical Impression: Medication refill Disposition: 01 HOME / SELF CARE / HOMELESS Is pt being admited?: No Does the pt Need Aspirin: No Condition: Stable Additional Instructions: Follow-up with a primary care doctor in 3-5 days or if symptoms worsen and continue return to emergency room as soon as possible. Prescriptions: amLODIPine 10 mg PO DAILY #30 tab cloNIDine [Catapres] 0.2 mg PO BID #60 tablet Referrals: LOUISE SUBRAMANIAN MD [Primary Care Provider] - 3-5 Days PRIMARY MD DWAINE [Referring] - 3-5 Days Time of Disposition: 10:26
== END 2022-04-13 10:55 | disposition home or self-care (01) ==
LOC: ED 09:32
DX: I10 Essential (primary) hypertension (principal); Z76.0 Encounter for issue of repeat prescription; Z79.899 Other long term (current) drug therapy
CPT/HCPCS: 99282